=== PATIENT | female | born 1940 | race Caucasian/White ===

== ENCOUNTER 2020-04-29 12:41 | Inpatient (IN) ==
[2020-04-29] MEDS ORDERED: *HR* HYDROcodone/Acet 5/325 mg TABLET PO ONE (13:05)
[2020-04-29] MEDS ORDERED: Morphine Sulfate 2 MG/ML SYRINGE IVP PRN (14:14)
[2020-04-29 15:03] LABS: Hemoglobin 12.7 g/dL (11.5-15.4); Mean Corpuscular HGB Conc 31.8 g/dL (31.6-35.5); Mean Corpuscular Hemoglobin 29.1 pg (28.0-33.3); Mean Corpuscular Volume 91.5 fL (83.0-100.0); Mean Platelet Volume 9.8 fL (9.4-12.4); Platelet Count 373 K/mcL (140-400); Red Blood Count 4.37 M/mcL (3.82-4.97); Red Cell Distribution Width 13.2 % (11.5-14.5)
[2020-04-29 15:26] LABS: BUN/Creatinine Ratio 29 (6-26); Blood Urea Nitrogen 16 mg/dL (8-23); Calcium 9.3 mg/dL (8.6-10.3); Carbon Dioxide 30 mEq/L (23-29); Chloride 102 mEq/L (98-107); Glucose 108 mg/dL (70-105); Osmolality,Calculated 288 (280-300); Potassium 3.9 mEq/L (3.5-5.1); Sodium 138 mEq/L (136-145); eGFR For African Americans > 60 (> 60); eGFR For Non-African Americans > 60 (> 60)
[2020-04-29] MEDS ORDERED: Carbidopa/Levodopa 25/100 TABLET PO STA (15:56)
[2020-04-29] MEDS ORDERED: Naloxone 0.4 MG/ML INJ IVP PRN (17:41)
[2020-04-29] MEDS ORDERED: Perflutren Lipid Microsphere 1.3 ML in 0.9 % Sodium Chloride 8.7 ML IVP PRN (17:44)
[2020-04-29] MEDS ORDERED: *HR* Dextrose 50 % in Water (Vial) 50 ML VIAL IVP PRN (17:45)
[2020-04-29] MEDS ORDERED: Dextrose Gel 15 GM/37.5 ML TUBE PO PRN ×2 (17:45)
[2020-04-29] MEDS ORDERED: D5% in Water 1,000 ML IVC PRN (17:45)
[2020-04-29] MEDS ORDERED: Acetaminophen 325 MG TABLET PO PRN (17:46)
[2020-04-29] MEDS ORDERED: *HR* LORazepam 0.5 MG TABLET PO PRN (18:30)
[2020-04-29] MEDS ORDERED: Melatonin 3 MG TABLET PO PRN (19:02)
[2020-04-29] MEDS: Carbidopa/Levodopa 25/100 TABLET PO SCH (20:19)
[2020-04-29] MEDS: Ipratropium/Albuterol Neb 3 ML IH SCH (22:31)
[2020-04-29 22:34] LABS: Influenza A PCR Negative (Negative); Influenza B PCR Negative (Negative); Resp. Syncytial Virus PCR Negative (Negative)
[2020-04-29 22:41] LABS: SARS-CoV-2 by PCR (In House) Negative (Negative)
[2020-04-30 02:43] LABS: Basophils % 0.3 %; Eosinophils % 0.2 %; Hematocrit 34.7 % (35.3-44.9); Hemoglobin 11.2 g/dL (11.5-15.4); Immature Granulocytes % 0.2 % (0-4); Lymphocytes % 9.9 %; Mean Corpuscular HGB Conc 32.3 g/dL (31.6-35.5); Mean Corpuscular Hemoglobin 29.2 pg (28.0-33.3); Mean Corpuscular Volume 90.4 fL (83.0-100.0); Mean Platelet Volume 9.9 fL (9.4-12.4); Monocytes # 1.1 K/mcL (0.0-1.3); Monocytes % 10.9 %; Neutrophils # 7.7 K/mcL (1.6-8.9); Platelet Count 321 K/mcL (140-400); Red Blood Count 3.84 M/mcL (3.82-4.97); Red Cell Distribution Width 13.3 % (11.5-14.5); Segmented Neutrophils % 78.5 %; White Blood Count 9.9 K/mcL (4.3-11.1)
[2020-04-30 03:03] LABS: BUN/Creatinine Ratio 33 (6-26); Blood Urea Nitrogen 18 mg/dL (8-23); Calcium 8.5 mg/dL (8.6-10.3); Carbon Dioxide 28 mEq/L (23-29); Chloride 102 mEq/L (98-107); Glucose 135 mg/dL (70-105); Osmolality,Calculated 284 (280-300); Potassium 3.6 mEq/L (3.5-5.1); Sodium 135 mEq/L (136-145); eGFR For African Americans > 60 (> 60); eGFR For Non-African Americans > 60 (> 60)
[2020-04-30] MEDS: Ipratropium/Albuterol Neb 3 ML IH SCH ×4 (04:20→23:31)
[2020-04-30] MEDS: Insulin LISPRO 300 UNITS/3 ML VIAL SUBQ SCH ×2 (08:36→12:11)
[2020-04-30] MEDS ORDERED: amLODIPine 5 MG TABLET PO SCH (09:00)
[2020-04-30] MEDS ORDERED: Aspirin 81 MG TAB.CHEW PO SCH (09:00)
[2020-04-30] MEDS ORDERED: TROSPIUM CHLORIDE 20 MG PO SCH (09:00)
[2020-04-30] MEDS: Carbidopa/Levodopa 25/100 TABLET PO SCH ×2 (09:02→20:56)
[2020-04-30] MEDS ORDERED: *HR* Midazolam HCl 2 MG/2 ML VIAL ONE ×2 (16:05→16:09)
[2020-04-30] MEDS ORDERED: *HR* FentaNYL (PF) 100 MCG/2 ML VIAL ONE ×2 (16:05→16:09)
[2020-04-30] MEDS ORDERED: Vancomycin 1,000 MG VIAL ONE (16:06)
[2020-04-30] MEDS ORDERED: Ethanol\\Acetic Acid\\Na Ace\\Ben 1,000 ML IRRIG.SOLN IR ONE (16:06)
[2020-04-30] MEDS ORDERED: *HR* Succinylcholine 200 MG/10 ML VIAL IVP ONE (16:09)
[2020-04-30] MEDS ORDERED: Lidocaine HCL 4 ML Topical Solution (Laryng-O-Jet Kit Sterile Pak) TP ONE (16:09)
[2020-04-30] MEDS ORDERED: *HR* Propofol 200 MG/20 ML VIAL IVP ONE (16:09)
[2020-04-30] MEDS ORDERED: Lidocaine -MPF 2% 2 ML VIAL ONE (16:09)
[2020-04-30] MEDS ORDERED: ROPIVACAINE/PF/NS 0.25% 1 EACH SYRINGE INTRAART ONE (16:11)
[2020-04-30] MEDS ORDERED: Clindamycin 900 MG/50 ML 900 MG/50 ML IV.SOLN IVPB ONE ×2 (16:14→16:20)
[2020-04-30] MEDS ORDERED: Povidone-Iodine 45 ML, Sodium Chloride IRRigation 1,000 ML IR ONE (16:45)
[2020-04-30] MEDS ORDERED: *HR* PHENYLEPHRINE 1,000 MCG/10 ML SYRINGE IVP ONE (16:47)
[2020-04-30] MEDS ORDERED: Dexamethasone 4 MG/ML VIAL ONE (16:56)
[2020-04-30] MEDS ORDERED: Ondansetron 4 MG/2 ML VIAL ONE (16:56)
[2020-04-30] MEDS ORDERED: EPHEDrine 50 MG/ML VIAL ONE (16:57)
[2020-04-30] MEDS ORDERED: *HR* FentaNYL (PF) 100 MCG/2 ML VIAL IVP PRN (18:06)
[2020-04-30] MEDS ORDERED: Ondansetron 4 MG/2 ML VIAL IVP PRN (18:06)
[2020-04-30] MEDS ORDERED: *HR* Metoprolol 5 MG/5 ML VIAL IVP ONE (18:33)
[2020-04-30] MEDS ORDERED: *HR* Dextrose 50 % in Water (Vial) 50 ML VIAL IVP PRN (19:39)
[2020-04-30] MEDS ORDERED: Dextrose Gel 15 GM/37.5 ML TUBE PO PRN ×2 (19:39)
[2020-04-30] MEDS ORDERED: Ringers Solution, Lactated 1,000 ML IVC SCH (19:39)
[2020-04-30] MEDS ORDERED: Sennosides 8.6 MG TABLET PO PRN (19:39)
[2020-04-30] MEDS ORDERED: MOM Conc 10 ML UD.LIQ PO PRN (19:39)
[2020-04-30] MEDS ORDERED: D5% in Water 1,000 ML IVC PRN (19:39)
[2020-04-30] MEDS ORDERED: Naloxone 0.4 MG/ML INJ IVP PRN (19:39)
[2020-04-30 19:56] LABS: Hematocrit 36.9 % (35.3-44.9); Hemoglobin 11.8 g/dL (11.5-15.4)
[2020-04-30] MEDS: Ondansetron 4 MG/2 ML VIAL IVP PRN (20:56)
[2020-05-01] MEDS ORDERED: Metoclopramide 10 MG/10 ML UD.LIQ PO ONE (00:33)
[2020-05-01] MEDS: Clindamycin 900 MG/50 ML 900 MG/50 ML IV.SOLN IVPB SCH ×2 (00:50→08:40)
[2020-05-01 01:44] LABS: Hematocrit 35.1 % (35.3-44.9); Hemoglobin 11.4 g/dL (11.5-15.4); Mean Corpuscular HGB Conc 32.5 g/dL (31.6-35.5); Mean Corpuscular Hemoglobin 29.6 pg (28.0-33.3); Mean Corpuscular Volume 91.2 fL (83.0-100.0); Mean Platelet Volume 10.1 fL (9.4-12.4); Platelet Count 305 K/mcL (140-400); Red Blood Count 3.85 M/mcL (3.82-4.97); Red Cell Distribution Width 13.1 % (11.5-14.5)
[2020-05-01 01:57] LABS: BUN/Creatinine Ratio 27 (6-26); Blood Urea Nitrogen 13 mg/dL (8-23); Calcium 8.4 mg/dL (8.6-10.3); Carbon Dioxide 27 mEq/L (23-29); Chloride 98 mEq/L (98-107); Glucose 169 mg/dL (70-105); Osmolality,Calculated 278 (280-300); Potassium 3.6 mEq/L (3.5-5.1); Sodium 132 mEq/L (136-145); eGFR For African Americans > 60 (> 60); eGFR For Non-African Americans > 60 (> 60)
[2020-05-01] MEDS: Ipratropium/Albuterol Neb 3 ML IH SCH ×3 (03:45→15:27)
[2020-05-01] MEDS: *HR* LORazepam 0.5 MG TABLET PO PRN ×2 (04:32→22:04)
[2020-05-01 07:50] LABS: Bacteria,Urine Few per hpf (None-Few); Bilirubin,Urine Negative (Negative); Blood,Urine Trace (Negative); Clarity,Urine Turbid (Clear); Color,Urine Light-Yellow (Yellow); Glucose,Urine (UA) 100 mg/dL (Normal); Hyaline Casts,Urine Few per lpf (None Seen); Ketones,Urine Trace mg/dL (Negative); Leukocyte Esterase,Urine Moderate (Negative); Mucus,Urine Few per lpf (None-Few); Nitrite,Urine Negative (Negative); PH,Urine 6.5 pH Units (5.0-8.0); Protein,Urine Trace mg/dL (Neg-Trace); RBC,Urine 0-3 per hpf (0-3); Specific Gravity,Urine 1.017 (1.010-1.025); Squamous Epithelial Cell,Urine Moderate per hpf (None-Few); Urobilinogen,Urine Normal (Normal); WBC,Urine 50-100 per hpf (0-3)
[2020-05-01] MEDS: *HR* OxyCODONE Immed Rel 5 MG TABLET PO PRN (08:27)
[2020-05-01] MEDS: Carbidopa/Levodopa 25/100 TABLET PO SCH ×3 (08:28→22:04)
[2020-05-01] MEDS: amLODIPine 5 MG TABLET PO SCH (08:29)
[2020-05-01] MEDS: Insulin LISPRO 300 UNITS/3 ML VIAL SUBQ SCH ×3 (09:18→16:41)
[2020-05-01] MEDS: Ondansetron 4 MG/2 ML VIAL IVP PRN (12:23)
[2020-05-01] MEDS: *HR* OxyCODONE/APAP 5/325 TABLET PO PRN (12:30)
[2020-05-01] MEDS: *HR* Enoxaparin 30 MG/0.3 ML SYRINGE SQ SCH ×3 (16:04→20:20)
[2020-05-01] MEDS: Melatonin 3 MG TABLET PO PRN (22:04)
[2020-05-02] MEDS: Ipratropium/Albuterol Neb 3 ML IH SCH ×5 (00:18→22:32)
[2020-05-02] MEDS: *HR* OxyCODONE/APAP 5/325 TABLET PO PRN (06:28)
[2020-05-02] MEDS: *HR* Enoxaparin 30 MG/0.3 ML SYRINGE SQ SCH ×2 (06:28→16:30)
[2020-05-02 07:12] LABS: Hematocrit 32.7 % (35.3-44.9); Hemoglobin 10.7 g/dL (11.5-15.4)
[2020-05-02 07:19] LABS: BUN/Creatinine Ratio 32 (6-26); Blood Urea Nitrogen 16 mg/dL (8-23); Calcium 8.4 mg/dL (8.6-10.3); Carbon Dioxide 29 mEq/L (23-29); Chloride 96 mEq/L (98-107); Glucose 107 mg/dL (70-105); Osmolality,Calculated 274 (280-300); Potassium 3.8 mEq/L (3.5-5.1); Sodium 131 mEq/L (136-145); eGFR For African Americans > 60 (> 60); eGFR For Non-African Americans > 60 (> 60)
[2020-05-02] MEDS: amLODIPine 5 MG TABLET PO SCH (08:45)
[2020-05-02] MEDS: Carbidopa/Levodopa 25/100 TABLET PO SCH ×3 (08:49→21:31)
[2020-05-02] MEDS: Insulin LISPRO 300 UNITS/3 ML VIAL SUBQ SCH ×3 (08:52→16:31)
[2020-05-02] MEDS: *HR* OxyCODONE Immed Rel 5 MG TABLET PO PRN (21:25)
[2020-05-02] MEDS: Melatonin 3 MG TABLET PO PRN (21:26)
[2020-05-03] MEDS: Ipratropium/Albuterol Neb 3 ML IH SCH ×4 (03:28→22:01)
[2020-05-03 04:14] LABS: Hematocrit 30.1 % (35.3-44.9); Hemoglobin 9.8 g/dL (11.5-15.4); Mean Corpuscular HGB Conc 32.6 g/dL (31.6-35.5); Mean Corpuscular Hemoglobin 29.3 pg (28.0-33.3); Mean Corpuscular Volume 89.9 fL (83.0-100.0); Mean Platelet Volume 10.2 fL (9.4-12.4); Platelet Count 318 K/mcL (140-400); Red Blood Count 3.35 M/mcL (3.82-4.97); White Blood Count 9.3 K/mcL (4.3-11.1)
[2020-05-03 04:35] LABS: BUN/Creatinine Ratio 26 (6-26); Blood Urea Nitrogen 12 mg/dL (8-23); Calcium 8.2 mg/dL (8.6-10.3); Carbon Dioxide 28 mEq/L (23-29); Chloride 95 mEq/L (98-107); Glucose 132 mg/dL (70-105); Magnesium 1.9 mg/dL (1.6-2.6); Osmolality,Calculated 268 (280-300); Potassium 3.8 mEq/L (3.5-5.1); Sodium 128 mEq/L (136-145); eGFR For African Americans > 60 (> 60); eGFR For Non-African Americans > 60 (> 60)
[2020-05-03] MEDS: *HR* OxyCODONE/APAP 5/325 TABLET PO PRN ×2 (05:42→15:46)
[2020-05-03] MEDS: *HR* Enoxaparin 30 MG/0.3 ML SYRINGE SQ SCH ×2 (05:46→18:17)
[2020-05-03] MEDS: Insulin LISPRO 300 UNITS/3 ML VIAL SUBQ SCH ×3 (08:43→16:00)
[2020-05-03] MEDS: amLODIPine 5 MG TABLET PO SCH (08:59)
[2020-05-03] MEDS: Carbidopa/Levodopa 25/100 TABLET PO SCH ×3 (08:59→21:51)
[2020-05-03] MEDS ORDERED: NON-FORMULARY MEDICATION 1 EACH EACH (Losartan Potassium 100 MG Tablet) PO SCH (09:00)
[2020-05-03] MEDS: Ondansetron 4 MG/2 ML VIAL IVP PRN (18:17)
[2020-05-03] MEDS: *HR* OxyCODONE Immed Rel 5 MG TABLET PO PRN (21:51)
[2020-05-03] MEDS: Melatonin 3 MG TABLET PO PRN (21:51)
[2020-05-04] MEDS: Ipratropium/Albuterol Neb 3 ML IH SCH ×3 (04:22→16:26)
[2020-05-04] MEDS: *HR* Enoxaparin 30 MG/0.3 ML SYRINGE SQ SCH (05:38)
[2020-05-04] MEDS: Insulin LISPRO 300 UNITS/3 ML VIAL SUBQ SCH ×3 (08:05→16:36)
[2020-05-04] MEDS: Carbidopa/Levodopa 25/100 TABLET PO SCH ×2 (08:33→15:38)
[2020-05-04] MEDS: amLODIPine 5 MG TABLET PO SCH (08:34)
[2020-05-04 09:01] LABS: BUN/Creatinine Ratio 24 (6-26); Blood Urea Nitrogen 11 mg/dL (8-23); Calcium 8.8 mg/dL (8.6-10.3); Carbon Dioxide 35 mEq/L (23-29); Chloride 93 mEq/L (98-107); Glucose 139 mg/dL (70-105); Osmolality,Calculated 278 (280-300); Potassium 3.6 mEq/L (3.5-5.1); Sodium 133 mEq/L (136-145); eGFR For African Americans > 60 (> 60); eGFR For Non-African Americans > 60 (> 60)
[2020-05-04] MEDS: *HR* OxyCODONE Immed Rel 5 MG TABLET PO PRN (10:33)
[2020-05-04 12:27] LABS: Adenovirus Not Detected (Not Detect); Bordetella Pertussis Not Detected (Not Detect); Chlamydophila pneumoniae Not Detected (Not Detect); Coronavirus 229E Not Detected (Not Detect); Coronavirus HKU1 Not Detected (Not Detect); Coronavirus NL63 Not Detected (Not Detect); Coronavirus OC43 Not Detected (Not Detect); Human Metapneumovirus Not Detected (Not Detect); Human Rhinovirus/Enterovirus Not Detected (Not Detect); Influenza A Subtype 2009 H1 Not Detected (Not Detect); Influenza B Not Detected (Not Detect); Mycoplasma pneumoniae Not Detected (Not Detect); Parainfluenza Virus 1 Not Detected (Not Detect); Parainfluenza Virus 2 Not Detected (Not Detect); Parainfluenza Virus 3 Not Detected (Not Detect); Parainfluenza Virus 4 Not Detected (Not Detect); Respiratory Syncytial Virus Not Detected (Not Detect); SARS-CoV-2 Not Detected (Not Detect)
[2020-05-04 15:02] VITALS: BP 113/68
== END 2020-05-04 17:14 | disposition other institution (70) | DRG 483 ==
LOC: 3NENU 12:41 → EMEROOARM 12:41 → SUATTDRO 16:02 → 3NENU 16:59
PROVIDERS: ADMIT General Practice; ATTEND Internal Medicine

== ENCOUNTER 2021-05-06 02:14 | Inpatient (IN) ==
[2021-05-06] MEDS ORDERED: *HR* FentaNYL (PF) 100 MCG/2 ML VIAL IVP ONE (02:49)
[2021-05-06 03:31] LABS: Basophils # 0.1 K/mcL (0.0-0.2); Basophils % 0.7 %; Eosinophils # 0.3 K/mcL (0.0-0.6); Eosinophils % 3.1 %; Hematocrit 38.3 % (35.3-44.9); Hemoglobin 11.8 g/dL (11.5-15.4); Immature Granulocytes % 0.3 % (0-4); Lymphocytes # 1.5 K/mcL (0.6-4.6); Lymphocytes % 16.3 %; Mean Corpuscular HGB Conc 30.8 g/dL (31.6-35.5); Mean Corpuscular Hemoglobin 26.9 pg (28.0-33.3); Mean Corpuscular Volume 87.2 fL (83.0-100.0); Mean Platelet Volume 9.9 fL (9.4-12.4); Monocytes # 0.8 K/mcL (0.0-1.3); Monocytes % 8.5 %; Neutrophils # 6.5 K/mcL (1.6-8.9); Platelet Count 346 K/mcL (140-400); Red Blood Count 4.39 M/mcL (3.82-4.97); Red Cell Distribution Width 13.9 % (11.5-14.5); Segmented Neutrophils % 71.1 %; White Blood Count 9.1 K/mcL (4.3-11.1)
[2021-05-06 03:43] LABS: BUN/Creatinine Ratio 28 (6-26); Blood Urea Nitrogen 21 mg/dL (8-23); Calcium 8.7 mg/dL (8.6-10.3); Carbon Dioxide 32 mEq/L (23-29); Chloride 101 mEq/L (98-107); Glucose 102 mg/dL (70-105); Osmolality,Calculated 289 (280-300); Sodium 138 mEq/L (136-145); eGFR For African Americans > 60 (> 60); eGFR For Non-African Americans > 60 (> 60)
[2021-05-06 04:12] LABS: Bacteria,Urine Few per hpf (None-Few); Bilirubin,Urine Negative (Negative); Blood,Urine Negative (Negative); Clarity,Urine Turbid (Clear); Color,Urine Yellow (Yellow); Glucose,Urine (UA) Normal (Normal); Hyaline Casts,Urine Few per lpf (None Seen); Ketones,Urine Trace mg/dL (Negative); Leukocyte Esterase,Urine Moderate (Negative); Mucus,Urine Few per lpf (None-Few); Nitrite,Urine Negative (Negative); Protein,Urine 30 mg/dL (Neg-Trace); RBC,Urine 0-3 per hpf (0-3); Specific Gravity,Urine 1.028 (1.010-1.025); Squamous Epithelial Cell,Urine Many per hpf (None-Few); Urobilinogen,Urine Normal (Normal)
[2021-05-06] MEDS ORDERED: Ipratropium/Albuterol Neb 3 ML IH ONE (05:02)
[2021-05-06] MEDS ORDERED: cephALEXin 500 MG CAPSULE PO ONE (05:03)
[2021-05-06 05:47] LABS: Troponin I 0.04 ng/mL (< 0.04)
[2021-05-06] MEDS ORDERED: Furosemide 40 MG/4 ML VIAL IVP ONE (06:04)
[2021-05-06] MEDS ORDERED: *HR* Dextrose 50 % in Water (Syg) 50 ML SYRINGE IVP PRN (07:07)
[2021-05-06] MEDS ORDERED: D5% in Water 1,000 ML IVC PRN (07:07)
[2021-05-06] MEDS ORDERED: Naloxone 0.4 MG/ML INJ IVP PRN (07:07)
[2021-05-06] MEDS ORDERED: Ondansetron 4 MG/2 ML VIAL IVP PRN (07:07)
[2021-05-06] MEDS ORDERED: Dextrose 4 GM Chewable Tablets PO PRN ×2 (07:07)
[2021-05-06] MEDS ORDERED: Insulin LISPRO 300 UNITS/3 ML VIAL SUBQ SCH (07:30)
[2021-05-06] MEDS ORDERED: Perflutren Lipid Microsphere 1.3 ML in 0.9 % Sodium Chloride 8.7 ML IVP PRN (10:00)
[2021-05-06] MEDS: *HR* LORazepam 0.5 MG TABLET PO SCH ×2 (10:20→20:43)
[2021-05-06] MEDS: Spironolactone 25 MG TABLET PO SCH (10:20)
[2021-05-06] MEDS: Cholecalciferol (D-3) 1,000 UNIT (25MCG) TABLET PO SCH (10:20)
[2021-05-06] MEDS: Aspirin 81 MG TAB.CHEW PO SCH (10:20)
[2021-05-06] MEDS: Acetaminophen 325 MG TABLET PO PRN ×2 (10:25→21:22)
[2021-05-06] MEDS: Carbidopa/Levodopa 25/100 TABLET PO SCH ×3 (10:25→20:45)
[2021-05-06] MEDS: *HR* Heparin 5,000 UNIT/ML VIAL SQ SCH (17:09)
[2021-05-06] MEDS: Melatonin 3 MG TABLET PO SCH (20:44)
[2021-05-07 03:16] LABS: Basophils # 0.1 K/mcL (0.0-0.2); Basophils % 0.7 %; Eosinophils # 0.3 K/mcL (0.0-0.6); Eosinophils % 3.5 %; Hematocrit 36.8 % (35.3-44.9); Immature Granulocytes % 0.3 % (0-4); Lymphocytes # 1.2 K/mcL (0.6-4.6); Lymphocytes % 16.1 %; Mean Corpuscular HGB Conc 29.9 g/dL (31.6-35.5); Mean Corpuscular Volume 90.4 fL (83.0-100.0); Monocytes # 0.7 K/mcL (0.0-1.3); Monocytes % 9.5 %; Neutrophils # 5.2 K/mcL (1.6-8.9); Platelet Count 324 K/mcL (140-400); Red Blood Count 4.07 M/mcL (3.82-4.97); Red Cell Distribution Width 14.2 % (11.5-14.5); Segmented Neutrophils % 69.9 %; White Blood Count 7.4 K/mcL (4.3-11.1)
[2021-05-07 03:43] LABS: BUN/Creatinine Ratio 26 (6-26); Blood Urea Nitrogen 19 mg/dL (8-23); Calcium 9.1 mg/dL (8.6-10.3); Carbon Dioxide 34 mEq/L (23-29); Chloride 100 mEq/L (98-107); Glucose 128 mg/dL (70-105); Magnesium 2.1 mg/dL (1.6-2.6); Osmolality,Calculated 288 (280-300); Potassium 3.6 mEq/L (3.5-5.1); Sodium 137 mEq/L (136-145); eGFR For African Americans > 60 (> 60); eGFR For Non-African Americans > 60 (> 60)
[2021-05-07] MEDS: *HR* Heparin 5,000 UNIT/ML VIAL SQ SCH ×2 (05:22→16:13)
[2021-05-07] MEDS: Carbidopa/Levodopa 25/100 TABLET PO SCH ×3 (09:11→20:17)
[2021-05-07] MEDS: Furosemide 40 MG/4 ML VIAL IVP SCH (09:11)
[2021-05-07] MEDS: cefTRIAXone 1,000 MG in 0.9 % Sodium Chloride Mini Bag 100 ML IVPB SCH (09:11)
[2021-05-07] MEDS: *HR* LORazepam 0.5 MG TABLET PO SCH ×2 (09:12→20:17)
[2021-05-07] MEDS: Cholecalciferol (D-3) 1,000 UNIT (25MCG) TABLET PO SCH (09:12)
[2021-05-07] MEDS: Spironolactone 25 MG TABLET PO SCH (09:12)
[2021-05-07] MEDS: Aspirin 81 MG TAB.CHEW PO SCH (09:12)
[2021-05-07] MEDS: Acetaminophen 325 MG TABLET PO PRN (18:00)
[2021-05-07] MEDS: Melatonin 3 MG TABLET PO SCH (20:17)
[2021-05-07] MEDS: Ipratropium/Albuterol Neb 3 ML IH PRN (20:29)
[2021-05-08] MEDS: *HR* Heparin 5,000 UNIT/ML VIAL SQ SCH ×2 (05:02→15:32)
[2021-05-08] MEDS: Furosemide 40 MG/4 ML VIAL IVP SCH (08:01)
[2021-05-08] MEDS: cefTRIAXone 1,000 MG in 0.9 % Sodium Chloride Mini Bag 100 ML IVPB SCH (08:01)
[2021-05-08] MEDS: Aspirin 81 MG TAB.CHEW PO SCH (08:02)
[2021-05-08] MEDS: Spironolactone 25 MG TABLET PO SCH (08:02)
[2021-05-08] MEDS: Cholecalciferol (D-3) 1,000 UNIT (25MCG) TABLET PO SCH (08:02)
[2021-05-08] MEDS: *HR* LORazepam 0.5 MG TABLET PO SCH ×2 (08:02→20:33)
[2021-05-08] MEDS: Carbidopa/Levodopa 25/100 TABLET PO SCH ×3 (08:03→20:33)
[2021-05-08 08:40] LABS: BUN/Creatinine Ratio 23 (6-26); Blood Urea Nitrogen 15 mg/dL (8-23); Calcium 8.9 mg/dL (8.6-10.3); Carbon Dioxide 37 mEq/L (23-29); Chloride 98 mEq/L (98-107); Glucose 111 mg/dL (70-105); Osmolality,Calculated 288 (280-300); Potassium 3.9 mEq/L (3.5-5.1); Sodium 138 mEq/L (136-145); eGFR For African Americans > 60 (> 60); eGFR For Non-African Americans > 60 (> 60)
[2021-05-08] MEDS: predniSONE 20 MG TABLET PO SCH (17:50)
[2021-05-08] MEDS: Ipratropium/Albuterol Neb 3 ML IH PRN (19:41)
[2021-05-08] MEDS: Melatonin 3 MG TABLET PO SCH (20:33)
[2021-05-09] MEDS: *HR* Heparin 5,000 UNIT/ML VIAL SQ SCH ×2 (06:05→16:44)
[2021-05-09 08:39] LABS: Basophils % 0.3 %; Eosinophils % 0.3 %; Hematocrit 37.5 % (35.3-44.9); Hemoglobin 11.5 g/dL (11.5-15.4); Immature Granulocytes % 0.4 % (0-4); Lymphocytes # 0.9 K/mcL (0.6-4.6); Lymphocytes % 10.2 %; Mean Corpuscular HGB Conc 30.7 g/dL (31.6-35.5); Mean Corpuscular Hemoglobin 27.1 pg (28.0-33.3); Mean Corpuscular Volume 88.4 fL (83.0-100.0); Mean Platelet Volume 9.8 fL (9.4-12.4); Monocytes # 0.6 K/mcL (0.0-1.3); Monocytes % 5.9 %; Neutrophils # 7.7 K/mcL (1.6-8.9); Platelet Count 316 K/mcL (140-400); Red Blood Count 4.24 M/mcL (3.82-4.97); Red Cell Distribution Width 13.7 % (11.5-14.5); Segmented Neutrophils % 82.9 %; White Blood Count 9.3 K/mcL (4.3-11.1)
[2021-05-09 08:56] LABS: BUN/Creatinine Ratio 21 (6-26); Blood Urea Nitrogen 13 mg/dL (8-23); Calcium 9.2 mg/dL (8.6-10.3); Carbon Dioxide 37 mEq/L (23-29); Chloride 97 mEq/L (98-107); Glucose 137 mg/dL (70-105); Osmolality,Calculated 284 (280-300); Potassium 4.1 mEq/L (3.5-5.1); Sodium 136 mEq/L (136-145); eGFR For African Americans > 60 (> 60); eGFR For Non-African Americans > 60 (> 60)
[2021-05-09] MEDS: predniSONE 20 MG TABLET PO SCH (09:31)
[2021-05-09] MEDS: Cholecalciferol (D-3) 1,000 UNIT (25MCG) TABLET PO SCH (09:31)
[2021-05-09] MEDS: Spironolactone 25 MG TABLET PO SCH (09:31)
[2021-05-09] MEDS: Aspirin 81 MG TAB.CHEW PO SCH (09:32)
[2021-05-09] MEDS: *HR* LORazepam 0.5 MG TABLET PO SCH ×2 (09:32→20:56)
[2021-05-09] MEDS: Carbidopa/Levodopa 25/100 TABLET PO SCH ×3 (09:33→20:56)
[2021-05-09] MEDS: Furosemide 40 MG/4 ML VIAL IVP SCH (09:35)
[2021-05-09] MEDS: cefTRIAXone 1,000 MG in 0.9 % Sodium Chloride Mini Bag 100 ML IVPB SCH (19:14)
[2021-05-09] MEDS: Melatonin 3 MG TABLET PO SCH (20:57)
[2021-05-09] MEDS: Acetaminophen 325 MG TABLET PO PRN (21:00)
[2021-05-10] MEDS: *HR* Heparin 5,000 UNIT/ML VIAL SQ SCH ×2 (07:44→17:00)
[2021-05-10] MEDS: Cholecalciferol (D-3) 1,000 UNIT (25MCG) TABLET PO SCH (09:42)
[2021-05-10] MEDS: Aspirin 81 MG TAB.CHEW PO SCH (09:43)
[2021-05-10] MEDS: Spironolactone 25 MG TABLET PO SCH (09:45)
[2021-05-10] MEDS: Carbidopa/Levodopa 25/100 TABLET PO SCH ×3 (09:46→21:13)
[2021-05-10] MEDS: Furosemide 40 MG/4 ML VIAL IVP SCH (09:47)
[2021-05-10] MEDS: *HR* LORazepam 0.5 MG TABLET PO SCH ×2 (09:57→21:14)
[2021-05-10] MEDS: predniSONE 20 MG TABLET PO SCH (09:57)
[2021-05-10] MEDS: Acetaminophen 325 MG TABLET PO PRN (13:47)
[2021-05-10] MEDS: Melatonin 3 MG TABLET PO SCH (21:14)
[2021-05-11] MEDS: *HR* Heparin 5,000 UNIT/ML VIAL SQ SCH (05:47)
[2021-05-11] MEDS: Aspirin 81 MG TAB.CHEW PO SCH (08:44)
[2021-05-11] MEDS: Cholecalciferol (D-3) 1,000 UNIT (25MCG) TABLET PO SCH (08:44)
[2021-05-11] MEDS: Spironolactone 25 MG TABLET PO SCH (08:44)
[2021-05-11] MEDS: *HR* LORazepam 0.5 MG TABLET PO SCH (08:46)
[2021-05-11] MEDS: predniSONE 20 MG TABLET PO SCH (08:46)
[2021-05-11] MEDS: Carbidopa/Levodopa 25/100 TABLET PO SCH (08:47)
[2021-05-11] MEDS: Furosemide 40 MG/4 ML VIAL IVP SCH (08:48)
[2021-05-11 14:43] LABS: Adenovirus Not Detected (Not Detect); Bordetella Pertussis Not Detected (Not Detect); Chlamydophila pneumoniae Not Detected (Not Detect); Coronavirus 229E Not Detected (Not Detect); Coronavirus HKU1 Not Detected (Not Detect); Coronavirus NL63 Not Detected (Not Detect); Coronavirus OC43 Not Detected (Not Detect); Human Metapneumovirus Not Detected (Not Detect); Human Rhinovirus/Enterovirus Not Detected (Not Detect); Influenza A Subtype 2009 H1 Not Detected (Not Detect); Influenza B Not Detected (Not Detect); Mycoplasma pneumoniae Not Detected (Not Detect); Parainfluenza Virus 1 Not Detected (Not Detect); Parainfluenza Virus 2 Not Detected (Not Detect); Parainfluenza Virus 3 Not Detected (Not Detect); Parainfluenza Virus 4 Not Detected (Not Detect); Respiratory Syncytial Virus Not Detected (Not Detect); SARS-CoV-2 Not Detected (Not Detect)
[2021-05-11 15:08] VITALS: BP 106/68; PULSE 71; TEMP 98.6; O2SAT 95
== END 2021-05-11 17:11 | disposition other institution (70) | DRG 280 ==
LOC: EMEROOARM 02:14 → 3BNU 02:14 → SUATTDRO 06:38 → 3BNU 08:18
PROVIDERS: ADMIT Internal Medicine; ATTEND Registered Nurse